=== PATIENT | female | born 1965 | race Caucasian/White ===

== ENCOUNTER 2020-08-16 18:11 | Emergency (ER) | payer BC, SELFPAY ==
[2020-08-16 23:33] LABS: SARS-CoV-2 PCR by NAA Not Detected (NotDetected)
== END 2020-08-16 18:39 | disposition home or self-care (01) ==
LOC: ERS 18:11
DX: Z20.822 Contact with and (suspected) exposure to COVID-19 (principal); Z87.891 Personal history of nicotine dependence
CPT/HCPCS: 87635; 99283; U0003; U0005